=== PATIENT | female | born 1955 | race Caucasian/White ===

== ENCOUNTER → 2020-01-16 | Outpatient (CLI) | payer OTHER ==
[~2020-01-16] MED LIST: ASPIR 8181 M1 PO; BENICAR40 MG PO; DULERA 100 MCG/13 GM INH; FISH OIL 1,001000 M2 PO; FOLIC ACID1 MG PO; HYDROXYCHLOROQ200 M1 PO; IRON325 PO; LEFLUNOMIDE20 MG PO; LEXAPRO20 MG PO; LODINE 200MG C200 M1 PO; LORZONE750 MG PO; PRAVACHOL40 MG PO; STELARA45 MG/0.1 SQ; VITAMIN D1000 UNI1 PO; ZANAFLEX4 MG PO
== END ==
LOC: SJCVC 13:11
PROVIDERS: ATTEND Internal Medicine Cardiovascular Disease
DX: I45.10 Unspecified right bundle-branch block (principal); I10 Essential (primary) hypertension; E78.00 Pure hypercholesterolemia, unspecified; M32.9 Systemic lupus erythematosus, unspecified; D80.2 Selective deficiency of immunoglobulin A [IgA]; Z98.890 Other specified postprocedural states; Z79.899 Other long term (current) drug therapy; Z86.73 Personal history of transient ischemic attack (TIA), and cerebral infarction without residual deficits

== ENCOUNTER → 2020-08-31 | Outpatient (CLI) | payer OTHER | LOC: SJCVCINTER 09:34 → SJCVCIMAG 11:16 → SJCVCINTER 11:16 | PROVIDERS: ATTEND Internal Medicine Cardiovascular Disease | DX: E78.5 Hyperlipidemia, unspecified (principal); I10 Essential (primary) hypertension; Z95.2 Presence of prosthetic heart valve ==